=== PATIENT | male | born 1950 | race African-American/Black ===

== ENCOUNTER 2020-10-16 11:59 | Emergency (ER) | payer MEDICARE ==
[2020-10-16] MEDS ORDERED: HYDROcodone/Acetaminophen 5/325 mg Tablet ONE (12:21)
== END 2020-10-16 12:30 | disposition home or self-care (01) ==
LOC: BURERS 11:59
DX: G89.18 Other acute postprocedural pain (principal); M54.5 Low back pain; I10 Essential (primary) hypertension; J44.9 Chronic obstructive pulmonary disease, unspecified; F17.210 Nicotine dependence, cigarettes, uncomplicated
CPT/HCPCS: 99406